=== PATIENT | female | born 1975 | race Native Hawaiian/Other Pacific Islander ===

== ENCOUNTER 2017-04-30 13:42 | Outpatient (CLI) | payer MEDICAID ==
--- NOTE | 2017-04-30 15:17 | Ultrasound Report ---
PELVIC ULTRASOUND: 04/30/2017 CLINICAL INDICATION: Oligomenorrhea. TECHNIQUE: Transabdominal pelvic ultrasound performed for global evaluation. Transvaginal pelvic ultrasound performed for detailed evaluation. Real-time scanning performed and static images obtained. FINDINGS: The uterus is anteverted, measuring 10.8 x 5.4 x 4.4 cm. The endometrial echo complex measures 4 mm. No focal myometrial lesion is present. The ovaries are normal, with the right measuring 1.7 x 1.5 x 1.3 cm and the left measuring 2.2 x 2.1 x 1.4 cm. No free fluid is present. IMPRESSION: NORMAL PELVIC ULTRASOUND. :9 JOB #: [id number] EXT JOB #: [id number] [facility]
== END 2017-04-30 13:43 | disposition home or self-care (01) ==
LOC: DI 13:42
PROVIDERS: ATTEND Registered Nurse
DX: N91.4 Secondary oligomenorrhea (principal)
CPT/HCPCS: 76830; 76856

== ENCOUNTER 2017-04-30 13:44 | Outpatient (CLI) | payer MEDICAID ==
--- NOTE | 2017-05-02 11:19 | Mammography Report ---
DIGITAL SCREENING MAMMOGRAM: 04/30/2017 CLINICAL INDICATION: A 41-year-old, for baseline. TECHNIQUE: Routine CC and MLO projections were obtained of the breasts. FINDINGS: The breasts demonstrate scattered fibroglandular densities bilaterally. Punctate, typicall y benign calcifications are present. No suspicious masses, clustered microcalcifications, or regions of architectural distortion are identified. IMPRESSION: BENIGN FINDINGS. RECOMMENDATION: ROUTINE ANNUAL SCREENING UNLESS OTHERWISE CLINICALLY INDICATED. BIRADS CATEGORY 2-BENIGN FINDINGS. STANDARD QUALIFYING STATEMENTS 1. This examination was reviewed with the aid of Computer-Aided Detection (CAD). 2. A negative or benign imaging report should not delay biopsy if clinically suspicious findings are present. Consider surgical consultation if warranted. More than 5% of cancers are not identified by i maging. 3. Dense breasts may obscure an underlying neoplasm. JOB #: [id number] EXT JOB #:[id number]
== END 2017-04-30 13:45 | disposition home or self-care (01) ==
LOC: DI 13:44
PROVIDERS: ATTEND Registered Nurse
DX: Z12.31 Encounter for screening mammogram for malignant neoplasm of breast (principal)
CPT/HCPCS: 77067

== ENCOUNTER 2017-05-27 10:46 | Outpatient (CLI) | payer MEDICAID | END 2017-05-27 10:47 | disposition home or self-care (01) | LOC: SC 10:46 | PROVIDERS: ATTEND Nurse Practitioner Family | DX: G47.33 Obstructive sleep apnea (adult) (pediatric) (principal); G47.00 Insomnia, unspecified | CPT/HCPCS: 99212; 99214 ==

== ENCOUNTER 2017-08-29 08:00 | Outpatient (CLI) | payer MEDICAID ==
[2017-08-29 12:45] LABS: BASOPHILS # (AUTO) 0.1 10^3/uL (0.0-0.1); BASOPHILS % (AUTO) 0.7 %; EOSINOPHILS # (AUTO) 0.5 10^3/uL (0.0-0.7); EOSINOPHILS % (AUTO) 4.9 %; HGB - HEMOGLOBIN 13.5 g/dL (12.0-16.0); LYMPHOCYTES # (AUTO) 2.5 10^3/uL (1.5-3.5); LYMPHOCYTES % (AUTO) 25.9 %; MEAN CORPUSCULAR HEMOGLOBIN 30.9 pg (27.0-31.0); MEAN CORPUSCULAR HGB CONC 34.2 g/dL (32.0-36.0); MEAN CORPUSCULAR VOLUME 90.4 fL (81.0-99.0); MEAN PLATELET VOLUME 8.2 fL (7.9-10.8); MONOCYTES # (AUTO) 0.4 10^3/uL (0.0-1.0); NEUTROPHILS # (AUTO) 6.1 10^3/uL (1.5-6.6); NEUTROPHILS % (AUTO) 64.5 %; PLT - PLATELET COUNT 306 10^3/uL (130-450); RED BLOOD COUNT 4.37 10^6/uL (4.20-5.40); RED CELL DISTRIBUTION WIDTH 13.9 % (12.0-15.0); WHITE BLOOD COUNT 9.5 x10^3/uL (4.8-10.8)
[2017-08-29 13:29] LABS: ALBUMIN 4.3 g/dL (3.2-5.5); ALBUMIN/GLOBULIN RATIO 1.1 (1.0-2.2); ALKALINE PHOSPHATASE 75 IU/L (42-121); ALT ALANINE AMINOTRANSFERASE 21 IU/L (10-60); AST ASPARTATE AMINOTRANSFERASE 23 IU/L (10-42); BILIRUBIN,TOTAL 0.3 mg/dL (0.2-1.0); BUN - BLOOD UREA NITROGEN 11 mg/dL (6-20); CALCIUM 8.9 mg/dL (8.5-10.3); CARBON DIOXIDE - CO2 23 mmol/L (21-32); CHLORIDE 102 mmol/L (101-111); CHOL/HDL RATIO 4.8 (<4.4); CHOLESTEROL 130 mg/dL; CREATININE 0.8 mg/dL (0.4-1.0); GFR - MDRD 79 (>89); GLUCOSE 100 mg/dL (70-100); HDL CHOLESTEROL 27 mg/dL; LDL CHOLESTEROL,CALCULATED 76 mg/dL; LDL/HDL RATIO 2.8 (<4.4); SODIUM 134 mmol/L (135-145); TOTAL PROTEIN 8.3 g/dL (6.7-8.2); VLDL CHOLESTEROL 27 mg/dL
== END 2017-08-29 08:01 | disposition home or self-care (01) ==
LOC: LAB.N 08:00
PROVIDERS: ATTEND Family Medicine
DX: I10 Essential (primary) hypertension (principal); E66.9 Obesity, unspecified; Z51.81 Encounter for therapeutic drug level monitoring; Z79.899 Other long term (current) drug therapy
CPT/HCPCS: 36415; 80053; 80061; 83721; 84443; 85025

== ENCOUNTER 2017-12-24 17:23 | Emergency (ER) | payer MEDICAID ==
--- NOTE | 2017-12-24 19:09 | ED Physician Documentation ---
History of Present Illness - Stated complaint Stated Complaint: LT THUMB LAC - Chief complaint Chief Complaint: Laceration - History obtained from History obtained from: Patient - Additonal information Additional information: 42-year-old female presents the emergency department for evaluation of in injury to her left thumb which occurred just prior to arrival. The patient was peeling potatoes and shaved off a portion of her left thumb tip and nail. The patient denies loss of function. No other area of injury. The patient's tetanus is not up-to-date. Symptoms are described as moderate. 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 - Present Medications Home Medications: Ambulatory Orders Medication Instructions Recorded Confirmed Metoprolol Succinate 12/24/17 Prazosin [Minipress] 12/24/17 12/24/17 buPROPion [Wellbutrin Sr] 12/24/17 - Allergies Allergies/Adverse Reactions: Allergies Allergy/AdvReac Type Severity Reaction Status Date / Time codeine Allergy Rash Verified 12/24/17 17:30 - Social History Does the pt smoke?: Yes Smoking Status: Current every day smoker Does the pt drink ETOH?: No Does the pt have substance abuse?: No - Immunizations Immunizations are current?: Yes - POLST Patient has POLST: No PD ED PE NORMAL - General General: Alert and oriented X 3, No acute distress - HEENT HEENT: Atraumatic, PERRL, EOMI, Ears normal - Derm Derm: Other (The patient avulsed a small portion of her left thumb tip and small portion of her nail. There is mild venous bleeding. The patient has full active range of motion. There is no evidence of ligamentous or tendon injury. Sensation light touch is intact) - Extremities Extremities: Normal ROM s pain - Neuro Neuro: Alert and oriented X 3, No motor deficit - Psych Psych: Normal mood Results - Vitals Vitals: Vital Signs - 24 hr 12/24/17 12/24/17 17:28 19:10 Temperature 36.1 C L Heart Rate 71 72 Respiratory 18 16 Rate Blood Pressure 147/93 H 138/86 H O2 Saturation 97 100 Oxygen O2 Source Room air Procedures - Laceration (location) Finger left Wound type: Clean Skin layer closure: Other (The patient's wound is an avulsion, there is no area that would require laceration repair. The patient's wound was dressed with Surgicel and a pressure dressing was applied.) Other: Tetanus UTD Complexity: Simple PD MEDICAL DECISION MAKING - ED course ED course: The patient's wound was treated with Surgicel and a pressure dressing. The patient will follow up with primary care. I discussed warning signs and recommended returning to the emergency department for worsening or any concerns - Sepsis Event Vital Signs: Vital Signs - 24 hr 12/24/17 12/24/17 17:28 19:10 Temperature 36.1 C L Heart Rate 71 72 Respiratory 18 16 Rate Blood Pressure 147/93 H 138/86 H O2 Saturation 97 100 Oxygen O2 Source Room air Departure - Departure Disposition: 01 Home, Self Care Clinical Impression: Avulsion of finger tip Qualifiers: Encounter type: initial encounter Qualified Code(s): S61.209A - Unspecified open wound of unspecified finger without damage to nail, initial encounter Instructions: ED Laceration All Follow-Up: Tony Rader MD [Primary Care Provider] - Within 1 week Comments: Please return to the emergency department immediately for worsening symptoms or any concerns Discharge Date/Time: 12/24/17 19:10
[2017-12-24 19:16] VITALS: BP 138/86
== END 2017-12-24 19:10 | disposition home or self-care (01) ==
LOC: ED 17:23
DX: S61.112A Laceration without foreign body of left thumb with damage to nail, initial encounter (principal); I10 Essential (primary) hypertension; F17.200 Nicotine dependence, unspecified, uncomplicated; W27.4XXA Contact with kitchen utensil, initial encounter; Y93.89 Activity, other specified
CPT/HCPCS: 99283

== ENCOUNTER 2018-09-01 09:08 | Outpatient (CLI) | payer MEDICAID | END 2018-09-01 09:09 | disposition home or self-care (01) | LOC: SC 09:08 | PROVIDERS: ATTEND Nurse Practitioner Family | DX: G47.33 Obstructive sleep apnea (adult) (pediatric) (principal) | CPT/HCPCS: 99212; 99214 ==

== ENCOUNTER 2019-08-31 11:49 | Outpatient (CLI) | payer MEDICAID ==
[2019-08-31 18:19] LABS: BASOPHILS % (AUTO) 0.3 %; EOSINOPHILS # (AUTO) 0.4 10^3/uL (0.0-0.7); EOSINOPHILS % (AUTO) 3.9 %; HGB - HEMOGLOBIN 14.2 g/dL (12.0-16.0); LYMPHOCYTES # (AUTO) 2.3 10^3/uL (1.5-3.5); LYMPHOCYTES % (AUTO) 24.2 %; MEAN CORPUSCULAR HEMOGLOBIN 29.5 pg (27.0-31.0); MEAN CORPUSCULAR HGB CONC 33.2 g/dL (32.0-36.0); MEAN CORPUSCULAR VOLUME 88.8 fL (81.0-99.0); MEAN PLATELET VOLUME 10.3 fL (7.9-10.8); MONOCYTES # (AUTO) 0.3 10^3/uL (0.0-1.0); MONOCYTES % (AUTO) 3.1 %; NEUTROPHILS # (AUTO) 6.6 10^3/uL (1.5-6.6); NEUTROPHILS % (AUTO) 68.1 %; PLT - PLATELET COUNT 307 10^3/uL (130-450); RED BLOOD COUNT 4.82 10^6/uL (4.20-5.40); WHITE BLOOD COUNT 9.7 x10^3/uL (4.8-10.8)
[2019-08-31 18:36] LABS: CALCIUM 9.1 mg/dL (8.5-10.3); CREATININE 0.7 mg/dL (0.4-1.0)
== END 2019-08-31 11:50 | disposition home or self-care (01) ==
LOC: LAB.N 11:49
PROVIDERS: ATTEND Physician Assistant Medical
DX: I10 Essential (primary) hypertension (principal)
CPT/HCPCS: 36415; 80048; 84443; 85025

== ENCOUNTER 2019-09-02 12:03 | Outpatient (CLI) | payer MEDICAID ==
[2019-09-02 17:24] LABS: HB2 TOTAL 14.8 g/dL; HEMOGLOBIN A1C 0.98 g/dL; HEMOGLOBIN A1C % 8.2 % (4.6-6.2)
== END 2019-09-02 23:59 | disposition home or self-care (01) ==
LOC: LAB.N 12:03
PROVIDERS: ATTEND Physician Assistant Medical
DX: R73.9 Hyperglycemia, unspecified (principal)
CPT/HCPCS: 36415; 83036

== ENCOUNTER 2019-11-03 15:40 | Outpatient (CLI) | payer MEDICAID ==
--- NOTE | 2019-11-03 15:32 | SLEEP CARE CONSULTATION ---
Information from patient questionnaire entered by Keira Camargo. I have reviewed and concur with the information entered by Keira Camargo. This document represents the service I personally performed and the decisions made by me, Edel Garcia, RN, MSN, CONTINUITY EDITOR. History of Present Illness Service Date and Time: 11/03/2019 1540 Previous diagnosis: Severe, Obstructive Sleep Apnea-Hypopnea Syndrome AHI: 46.3 (in 2014) Reason for follow up: annual (last seen 2018) Equipment type: CPAP Equipment obtained from: [facility] (getting supplies as needed) Mask style: Nasal Mask brand: Respironics Backup mask available: Yes (old mask ) Last cushion change: a couple of months Prior sleep studies: Yes Year and Where: 2014 - [facility] Type of Sleep Study: Polysomnography CPAP Compliance Data - Data Reviewed with Patient Average duration of nightly device use: 5.75 Compliance rate %: 82.2 (180 days) Current pressure setting (cmH2O): 14 Humidity settin Heated hose settin Average residual AHI: 2.7 Average large leak: 6 min 55 sec Subjective Patient concerns: reports: dry mouth, nose, throat (dry nose ). denies: aerophagia, mask discomfort, air blowing in eyes, mask leak noise, condensation in mask/hose, nasal congestion, epistaxis Observed to snore while using device: No Current pressure setting perceived as: too low (waking to feeling of not enough air / claustrophobia) On therapy, patient: reports: sleeping better, awakening more refreshed, being more awake and alert during the day, more rested overall. denies: drowsiness while driving Initial [place] Sleepiness Scale score: 14 (in 2015) Allergies and Home Medications Home medication list reviewed: No (started lisinopril and metformin ) Review of Systems Review of systems same as previous: No (new diabetes diagnosis) Physical Exam Height: 5 ft 2 in Weight: 263 lb Weight change since last visit: lost 12 pounds Body Mass Index: 48.1 BMI Classification: Morbidly Obese Impression and Plan 1. Obstructive Sleep Apnea-Hypopnea Syndrome, severe, with good treatment compliance and good apnea control. On CPAP therapy, the patient has better sleep quality and is more rested overall. However, she is waking to air hunger even with recent weight loss. Thus I will increase her CPAP pressure to [id number]. Patient advised to contact me if the air hunger is not resolved or if the pressure is uncomfortable. I also discussed how significant weight loss can reduce her apnea risk and CPAP pressure requirements. She was informed of symptoms to report for further PAP pressure adjustment. Nasal dryness can be reduced with increasing the CPAP humidity and the heated hose can be increased if condensation. Verbal instructions given. These can also be found in the manual. She can also contact [facility] for instructions and I will add this to the prescription for pressure change. With her new diagnosis of diabetes, I informed her of the diabetic classes available through the hospital and benefit stated by my other patients. But it requires a referral from her PCP. She is advised to discuss this with her PCP and agreed with plan. Patient's apnea severity and rationale for treatment to reduce apnea, improve sleep quality and reduce cardiovascular and cerebrovascular events was reviewed. I also reviewed the benefit of consistent device use of CPAP for hypertension. * * Change autoCPAP pressure to 15 cmH2O * Adjust humidity * Notify me if snoring with mask or feeling that the pressure is too much or too little * Continue to lose weight * Discuss diabetic classes with PCP * Use CPAP with all sleep * Call this office if any problems using CPAP * Return for follow up in 1 year , or sooner if concerns arise Visit Type: Telehealth Phone (to reduce risk of Covid 19 exposure) Patient Location: Home Location of Provider: Home Patient agrees and consents to this telehealth visit type: Yes Patient agrees to have their insurance billed: Yes Time Spent with Patient (minutes): 20 Provider Statement: I spent 100% of the Telehealth Phone Call with the patient with greater than 50% spent counseling the patient and coordination of care.
== END 2019-11-03 15:41 | disposition home or self-care (01) ==
LOC: SC 15:40
PROVIDERS: ATTEND Nurse Practitioner Family
DX: G47.33 Obstructive sleep apnea (adult) (pediatric) (principal); E66.01 Morbid (severe) obesity due to excess calories; Z68.42 Body mass index [BMI] 45.0-49.9, adult

== ENCOUNTER 2020-02-04 10:57 | Outpatient (CLI) | payer MEDICAID ==
[2020-02-04 18:32] LABS: ALBUMIN 4.6 g/dL (3.2-5.5); ALBUMIN/GLOBULIN RATIO 1.1 (1.0-2.2); ALKALINE PHOSPHATASE 75 IU/L (42-121); ALT ALANINE AMINOTRANSFERASE 16 IU/L (10-60); AST ASPARTATE AMINOTRANSFERASE 18 IU/L (10-42); BILIRUBIN,TOTAL 0.3 mg/dL (0.2-1.0); BUN - BLOOD UREA NITROGEN 16 mg/dL (6-20); CALCIUM 9.6 mg/dL (8.5-10.3); CARBON DIOXIDE - CO2 25 mmol/L (21-32); CHLORIDE 104 mmol/L (101-111); CHOL/HDL RATIO 3.7 (<4.4); CHOLESTEROL 122 mg/dL; GLUCOSE 98 mg/dL (70-100); HDL CHOLESTEROL 33 mg/dL; LDL CHOLESTEROL,CALCULATED 54 mg/dL; LDL/HDL RATIO 1.6 (<4.4); SODIUM 137 mmol/L (135-145); TOTAL PROTEIN 8.8 g/dL (6.7-8.2); VLDL CHOLESTEROL 35 mg/dL
[2020-02-04 18:56] LABS: CREATININE,URINE 496.8 mg/dL; MICROALBUM/CREATININE RATIO,UR 7.6 ug/mg (<30.0); MICROALBUMIN,URINE 3.8 mg/dL (0-300.0)
[2020-02-04 19:17] LABS: HEMOGLOBIN A1c% 5.7 % (4.27-6.07)
== END 2020-02-04 23:59 | disposition home or self-care (01) ==
LOC: LAB.WCP 10:57
PROVIDERS: ATTEND Physician Assistant
DX: E11.9 Type 2 diabetes mellitus without complications (principal)
CPT/HCPCS: 36415; 80053; 80061; 82043; 82570; 83036; 83721; 84443

== ENCOUNTER 2020-09-18 11:09 | Outpatient (CLI) | payer MEDICAID ==
[2020-09-18 18:21] LABS: BASOPHILS % (AUTO) 0.5 %; EOSINOPHILS # (AUTO) 0.6 10^3/uL (0.0-0.7); EOSINOPHILS % (AUTO) 6.9 %; HCT - HEMATOCRIT 41.1 % (37.0-47.0); HGB - HEMOGLOBIN 13.1 g/dL (12.0-16.0); LYMPHOCYTES # (AUTO) 2.4 10^3/uL (1.5-3.5); LYMPHOCYTES % (AUTO) 27.5 %; MEAN CORPUSCULAR HEMOGLOBIN 29.4 pg (27.0-31.0); MEAN CORPUSCULAR HGB CONC 31.9 g/dL (32.0-36.0); MEAN CORPUSCULAR VOLUME 92.4 fL (81.0-99.0); MEAN PLATELET VOLUME 10.1 fL (7.9-10.8); MONOCYTES # (AUTO) 0.4 10^3/uL (0.0-1.0); MONOCYTES % (AUTO) 4.7 %; NEUTROPHILS # (AUTO) 5.2 10^3/uL (1.5-6.6); NEUTROPHILS % (AUTO) 60.2 %; PLT - PLATELET COUNT 373 10^3/uL (130-450); RED BLOOD COUNT 4.45 10^6/uL (4.20-5.40); RED CELL DISTRIBUTION WIDTH 14.7 % (12.0-15.0); WHITE BLOOD COUNT 8.6 x10^3/uL (4.8-10.8)
[2020-09-18 18:48] LABS: ALBUMIN 4.6 g/dL (3.2-5.5); ALBUMIN/GLOBULIN RATIO 1.2 (1.0-2.2); ALKALINE PHOSPHATASE 61 IU/L (42-121); ALT ALANINE AMINOTRANSFERASE 15 IU/L (10-60); AST ASPARTATE AMINOTRANSFERASE 17 IU/L (10-42); BILIRUBIN,TOTAL 0.8 mg/dL (0.2-1.0); BUN - BLOOD UREA NITROGEN 17 mg/dL (6-20); CALCIUM 9.1 mg/dL (8.5-10.3); CARBON DIOXIDE - CO2 25 mmol/L (21-32); CHLORIDE 102 mmol/L (101-111); CHOL/HDL RATIO 4.4 (<4.4); CHOLESTEROL 151 mg/dL; CREATININE 1.1 mg/dL (0.4-1.0); GFR - MDRD 54 (>89); GLUCOSE 90 mg/dL (70-100); HDL CHOLESTEROL 34 mg/dL; LDL CHOLESTEROL,CALCULATED 83 mg/dL; LDL/HDL RATIO 2.4 (<4.4); POTASSIUM 4.5 mmol/L (3.5-5.0); SODIUM 136 mmol/L (135-145); TOTAL PROTEIN 8.5 g/dL (6.7-8.2); TRIGLYCERIDES 172 mg/dL; VLDL CHOLESTEROL 34 mg/dL
[2020-09-18 18:51] LABS: CREATININE,URINE 249.6 mg/dL; MICROALBUM/CREATININE RATIO,UR 18.4 ug/mg (<30.0); MICROALBUMIN,URINE 4.6 mg/dL (0-300.0); THYROID STIMULATING HORMONE 2.32 uIU/mL (0.34-5.60)
[2020-09-18 20:27] LABS: ESTIMATED AVERAGE GLUCOSE 105 mg/dL (70-100); HEMOGLOBIN A1c% 5.3 % (4.27-6.07)
== END 2020-09-18 23:59 | disposition home or self-care (01) ==
LOC: LAB.WCP 11:09
PROVIDERS: ATTEND Family Medicine
DX: Z00.00 Encounter for general adult medical examination without abnormal findings (principal); I10 Essential (primary) hypertension; E11.9 Type 2 diabetes mellitus without complications
CPT/HCPCS: 36415; 80053; 80061; 82043; 82570; 83036; 83721; 84443; 85025

== ENCOUNTER 2020-10-30 11:27 | Outpatient (CLI) | payer MEDICAID ==
--- NOTE | 2020-10-30 12:24 | SLEEP CARE CONSULTATION ---
Information from patient questionnaire entered by Keira Camargo. I have reviewed and concur with the information entered by Keira Camargo. This document represents the service I personally performed and the decisions made by me, Celine Brice MD, [facility]. History of Present Illness Service Date and Time: 10/30/2020 1127 Previous diagnosis: Severe, Obstructive Sleep Apnea-Hypopnea Syndrome AHI: 46.3 (in 2014) Reason for follow up: annual (last seen 10/2019) Equipment type: CPAP Equipment obtained from: [facility] Mask style: Nasal Mask brand: Respironics (Wisp) Prior sleep studies: Yes Year and Where: 2014 - [facility] Type of Sleep Study: Polysomnography HPI additional information: HPI: Ms. Lofton was called today to annual follow up on the nasal CPAP therapy. She was diagnosed to have severe obstructive sleep apnea-hypopnea syndrome. The patient wears a Respironics Wisp nasal mask. She reports using the device nightly and all through the night. The compliance report shows usage in 167 nights out of the past 180 nights, averaging 5.5 hours a night. The > 4 hour compliance rate for the past 180 days is 73.3%. She complained of no particular problem with the device such as soreness on the face, dry nose, epistaxis, nasal congestion or headache. She thinks that the pressure 14 cmH2O is comfortable. On the CPAP therapy she notices improvement in her sleep quality, and that she wakes up feeling fresher in the morning and more awake/alert during the day. The average residual AHI is 1.5; and average time in large leak per day is 55 seconds. CPAP Compliance Data - Data Reviewed with Patient Average duration of nightly device use: 5 hr 27 min Compliance rate %: 73.3 (180 days) Current pressure setting (cmH2O): 14 Humidity settin Average residual AHI: 1.5 Average large leak: 56 sec Subjective Missed days of use due to: reports: other (Too tired, fell asleep) Patient concerns: reports: mask leak noise Initial [place] Sleepiness Scale score: 14 (in 2014) Current [place] Sleepiness Scale score: 9 Allergies and Home Medications Drug allergies reviewed: Yes Home medication list reviewed: Yes Review of Systems Review of systems same as previous: Yes Physical Exam Height: 5 ft 2 in Weight: 239 lb Weight change since last visit: -31 Body Mass Index: 43.7 BMI Classification: Morbidly Obese Impression and Plan IMPRESSION: 1. Obstructive Sleep Apnea-Hypopnea Syndrome, severe (AHI was 46.3), with the patient doing well on nasal CPAP therapy. She has excellent compliance and significant clinical improvement. The current pressure appears effective and comfortable. Her Wisp mask fits well. Overall, she is very satisfied with treatment and plans to continue with it long-term. Because the patients CPAP is now older than the useful life of 5 years, I will order her a new autoCPAP and set it between 8 - 14 cmH2O. The decrease in pressure requirement is most likely from the 30-lb weight loss. PLAN: 1. Prescription made for an autoCPAP with heated humidifier and other supplies. 2. Try to lose more weight 3. Return for a follow up after one month of using the device for compliance check. Follow up recommended for: Weight management Visit Type: In Office Time Spent with Patient (minutes): 15 Provider Statement: I spent 100% of the Face to Face Visit with the patient with greater than 50% spent counseling the patient and coordination of care.
== END 2020-10-30 11:28 | disposition home or self-care (01) ==
LOC: SC 11:27
PROVIDERS: ATTEND Internal Medicine Pulmonary Disease
DX: G47.33 Obstructive sleep apnea (adult) (pediatric) (principal); E66.01 Morbid (severe) obesity due to excess calories; Z68.41 Body mass index [BMI] 40.0-44.9, adult
CPT/HCPCS: 99212

== ENCOUNTER 2020-11-14 08:39 | Day surgery (SDC) | payer MEDICAID ==
[2020-11-14] MEDS ORDERED: LACTATED RINGERS 1,000 ML IV ONE ×2 (08:44→10:06)
[2020-11-14] MEDS ORDERED: MIDAZOLAM 2 MG/2 ML VIAL ONE ×3 (09:33→09:51)
[2020-11-14] MEDS ORDERED: fentaNYL 250 MCG/5 ML VIAL ONE (09:34)
[2020-11-14 10:33] VITALS: BP 108/83
== END 2020-11-14 08:40 | disposition home or self-care (01) ==
LOC: SDS 08:39
PROVIDERS: ATTEND Surgery
DX: Z12.11 Encounter for screening for malignant neoplasm of colon (principal); K57.30 Diverticulosis of large intestine without perforation or abscess without bleeding; K64.8 Other hemorrhoids; Z80.0 Family history of malignant neoplasm of digestive organs; G47.33 Obstructive sleep apnea (adult) (pediatric); F17.290 Nicotine dependence, other tobacco product, uncomplicated
CPT/HCPCS: 45378; J3010; J7120

== ENCOUNTER 2021-01-15 04:43 | Emergency (ER) | payer MEDICAID ==
--- NOTE | 2021-01-15 05:05 | ED Physician Documentation ---
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 No: Headache, Nausea / vomiting Contributing factors: Just stood up Injury occurred: Fell Similar symptoms before: Has not had sx before - Additional information Additional information: shortly WAYBILL CLERK, patient got out of bed (wasnt asleep; was watching a video on her tablet) she got up to use the bathroom, experienced ear fullness with decreased/muffled hearing bilaterally, dimmed peripheral vision, and generalized weakness. she felt like she might pass out although does not recall passing out. She woke up on floor and approximately 20 minutes of time unaccounted for. She presents feeling normal, at baseline. no witnessed seizure activity, no tongue bite Review of Systems Constitutional: reports: Reviewed and negative Eyes: reports: Reviewed and negative Ears: reports: Reviewed and negative Nose: reports: Reviewed and negative Throat: reports: Reviewed and negative Cardiac: reports: Reviewed and negative, Other Respiratory: reports: Reviewed and negative GI: reports: Reviewed and negative : denies: Dysuria, Frequency, Now EGA PD PAST MEDICAL HISTORY - Past Medical History Cardiovascular: Hypertension Psych: Depression, Anxiety, Other - Past Surgical History Past Surgical History: Yes General: Cholecystectomy, 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 - Present Medications Home Medications: Ambulatory Orders Medication Instructions Recorded Confirmed Metoprolol Succinate 25 mg PO DAILY 12/24/17 01/15/21 Prazosin [Minipress] 5 mg PO DAILY 12/24/17 01/15/21 LORazepam [Ativan] 1 mg PO DAILY 11/14/20 01/15/21 Metformin HCl [Fortamet] 1,000 mg PO BID 11/14/20 01/15/21 lamoTRIgine [Lamictal Xr] 300 mg PO DAILY 11/14/20 01/15/21 - Allergies Allergies/Adverse Reactions: Allergies Allergy/AdvReac Type Severity Reaction Status Date / Time codeine Allergy Intermediate Rash Verified 01/15/21 04:55 - Social History Does the pt smoke?: Yes Smoking Status: Current every day smoker Does the pt drink ETOH?: No Does the pt have substance abuse?: No - Immunizations Immunizations are current?: Yes - POLST Patient has POLST: No PD ED PE NORMAL - Vitals Vital signs reviewed: Yes - General General: Alert and oriented X 3, No acute distress, Well developed/nourished - HEENT HEENT: Atraumatic, PERRL, EOMI, Moist mucous membranes - Neck Neck: Supple, no meningeal sign - Cardiac Cardiac: RRR, No rub - Respiratory Respiratory: No respiratory distress, Clear bilaterally - Abdomen Abdomen: Normal bowel sounds, Soft, Non tender, Non distended - Derm Derm: Normal color, No rash - Neuro Neuro: Alert and oriented X 3 Results - Vitals Vitals: Oxygen O2 Source Room air - EKG (time done) No standard instances Rate: Rate (enter#) (57) Rhythm: NSR Intervals: Normal NH, 2nd degree AVB type 1 Ischemia: Normal ST segments - Labs Labs: Laboratory Tests 01/15/21 01/15/21 01/15/21 05:05 05:05 05:05 WBC 10.9 H RBC 4.51 Hgb 13.7 Hct 41.5 MCV 92.0 MCH 30.4 MCHC 33.0 RDW 13.5 Plt Count 334 MPV 9.3 Neut # (Auto) 6.8 H Lymph # (Auto) 3.2 [place]ays # (Auto) 0.4 Eos # (Auto) 0.5 Baso # (Auto) 0.0 Absolute Nucleated RBC 0.00 Nucleated RBC % 0.0 Sodium 136 Potassium 3.8 Chloride 99 L Carbon Dioxide 24 Anion Gap 13.0 BUN 20 Creatinine 1.5 H Estimated GFR (MDRD) 38 L Glucose 129 H Calcium 9.5 Total Bilirubin 0.5 AST 18 ALT 13 Alkaline Phosphatase 61 Troponin I High Sens Total Protein 8.7 H Albumin 4.7 Globulin 4.0 Albumin/Globulin Ratio 1.2 Lipase 31 TSH 5.85 H 01/15/21 05:05 WBC RBC Hgb Hct MCV MCH MCHC RDW Plt Count MPV Neut # (Auto) Lymph # (Auto) [place] # (Auto) Eos # (Auto) Baso # (Auto) Absolute Nucleated RBC Nucleated RBC % Sodium Potassium Chloride Carbon Dioxide Anion Gap BUN Creatinine Estimated GFR (MDRD) Glucose Calcium Total Bilirubin AST ALT Alkaline Phosphatase Troponin I High Sens 2.4 Total Protein Albumin Globulin Albumin/Globulin Ratio Lipase TSH - Rads (name of study) chest xray Radiology: Prelim report reviewed, See rad report PD MEDICAL DECISION MAKING - ED course Complexity details: reviewed results, re-evaluated patient, considered differential, d/w patient ED course: reassuring blood tests (incidental note of mildly elevated creatinine with normal BUN). vital stable during ED stay although her SBP was low/normal (90s- 100s). after 2 liters NS, orthostatics undertaken and she had no significant change in her vital signs nor any symptoms and is thus discharged home. Departure - Departure Disposition: 01 Home, Self Care Clinical Impression: Syncope Qualifiers: Syncope type: unspecified Qualified Code(s): R55 - Syncope and collapse Condition: Good Instructions: ED Fainting Unkn Cause Comments: As we discussed, there is a mild abnormality in one of your kidney function tests today. This is likely a coincident finding (unrelated to your symptoms). You should follow up with your primary care provider for reevaluation of this abnormality. Discharge Date/Time: 01/15/21 08:12
[2021-01-15] MEDS: SODIUM CHLORIDE 0.9% 1,000 ML IV STA ×2 (05:09→06:47)
[2021-01-15 05:15] LABS: BASOPHILS % (AUTO) 0.2 %; EOSINOPHILS # (AUTO) 0.5 10^3/uL (0.0-0.7); EOSINOPHILS % (AUTO) 4.1 %; HCT - HEMATOCRIT 41.5 % (37.0-47.0); HGB - HEMOGLOBIN 13.7 g/dL (12.0-16.0); LYMPHOCYTES # (AUTO) 3.2 10^3/uL (1.5-3.5); LYMPHOCYTES % (AUTO) 29.6 %; MEAN CORPUSCULAR HEMOGLOBIN 30.4 pg (27.0-31.0); MEAN PLATELET VOLUME 9.3 fL (7.9-10.8); MONOCYTES # (AUTO) 0.4 10^3/uL (0.0-1.0); MONOCYTES % (AUTO) 3.9 %; NEUTROPHILS # (AUTO) 6.8 10^3/uL (1.5-6.6); PLT - PLATELET COUNT 334 10^3/uL (130-450); RED BLOOD COUNT 4.51 10^6/uL (4.20-5.40); RED CELL DISTRIBUTION WIDTH 13.5 % (12.0-15.0); WHITE BLOOD COUNT 10.9 x10^3/uL (4.8-10.8)
[2021-01-15 05:30] LABS: ALBUMIN 4.7 g/dL (3.2-5.5); ALBUMIN/GLOBULIN RATIO 1.2 (1.0-2.2); BILIRUBIN,TOTAL 0.5 mg/dL (0.2-1.0); CALCIUM 9.5 mg/dL (8.5-10.3); CREATININE 1.5 mg/dL (0.4-1.0); POTASSIUM 3.8 mmol/L (3.5-5.0); TOTAL PROTEIN 8.7 g/dL (6.7-8.2)
[2021-01-15 07:59] VITALS: BP 105/69
--- NOTE | 2021-01-15 08:09 | XRAY Report ---
PROCEDURE: Chest 2 View X-Ray INDICATIONS: syncope TECHNIQUE: 2 view(s) of the chest. COMPARISON: None. FINDINGS: Surgical changes and devices: None. Lungs and pleura: No pleural effusions or pneumothorax. Lungs are clear. Mediastinum: Mediastinal contours are normal. Heart size is normal. Bones and chest wall: No suspicious bony abnormalities. Soft tissues appear unremarkable. IMPRESSION: No acute cardiopulmonary abnormality Reviewed by: Andrew Cooney on 01/15/2021 8:07 AM PDT Approved by: Andrew Cooney on 01/15/2021 8:07 AM PDT Station ID: [id number]
== END 2021-01-15 08:12 | disposition home or self-care (01) ==
LOC: ED 04:43
DX: R55 Syncope and collapse (principal); I10 Essential (primary) hypertension; F17.200 Nicotine dependence, unspecified, uncomplicated
CPT/HCPCS: 36415; 80053; 83690; 84443; 84484; 85025; 93005; 99284

== ENCOUNTER 2021-03-06 10:24 | Outpatient (CLI) | payer MEDICAID ==
--- NOTE | 2021-03-06 11:02 | SLEEP CARE CONSULTATION ---
Information from patient questionnaire entered by Sarah Zuleta. I have reviewed and concur with the information entered by Sarah Zuleta. This document represents the service I personally performed and the decisions made by , Yashira Moya ARNP. History of Present Illness Service Date and Time: 03/06/2021 1024 Previous diagnosis: Severe, Obstructive Sleep Apnea-Hypopnea Syndrome AHI: 46.3 (in 2014) Reason for follow up: first compliance, first compliance after device update Equipment type: CPAP Equipment obtained from: Other ([facility]; getting supplies as needed) Mask style: Nasal Backup mask available: Yes (old mask) Last cushion change: 2 months Prior sleep studies: Yes Year and Where: 2014 - [facility] Type of Sleep Study: Polysomnography HPI additional information: HERNANDEZ JULIEN was diagnosed to have severe, AHI 46.3, obstructive sleep apnea- hypopnea syndrome and returned today with partner for CPAP therapy first compliance after device update follow-up. Sleep Study - Results Type of Sleep Study: Polysomnography Prior sleep studies: Yes Year and Where: 2014 - [facility] CPAP Compliance Data - Data Reviewed with Patient Average duration of nightly device use: 5 hours 18 minutes Compliance rate %: 53 Current pressure setting (cmH2O): 8-14 Average residual AHI: 1.9 Central apnea: 0.4 Obstructive apnea: 1.1 Hypopnea: 0.2 Subjective Missed days of use due to: reports: other (Fell asleep) Patient concerns: reports: mask discomfort, dry mouth, nose, throat (because of needing more air). denies: aerophagia, air blowing in eyes, mask leak noise, condensation in mask/hose, nasal congestion, epistaxis, other Observed to snore while using device: No Current pressure setting perceived as: too low On therapy, patient: reports: sleeping better, awakening more refreshed, being more awake and alert during the day, more rested overall. denies: drowsiness while driving Initial [place] Sleepiness Scale score: 14 (in 2014) Current [place] Sleepiness Scale score: 8 Allergies and Home Medications Home medication list reviewed: Yes (no changes) Review of Systems Review of systems same as previous: Yes (no changes) Physical Exam Heart Rate: 73 O2 Saturation: 97 Height: 5 ft 2 in Weight: 223 lb Body Mass Index: 40.8 BMI Classification: Morbidly Obese Impression and Plan 1. Obstructive Sleep Apnea-Hypopnea Syndrome, severe, with poor treatment compliance and good apnea control. On CPAP therapy, the patient has better sleep quality and is more rested overall. Patient has had difficulties at home due to family member dying from complications of Covid. She states she has a hard time shutting her mind off to able to go to sleep. Encouraged to try something like melatonin to help her go to sleep and also to write down her thoughts when she is ruminating to help her to relax and go to sleep. Patient also feels like the pressure is too low. She states at the beginning of the night she can feel like she is suffocating and needs more air. I will adjust her pressure for air hunger to 10-14 cmH2O. Patient to call if the pressure is still uncomfortable for further adjustment. Patient states she will lay down and sometimes fall asleep within 10 minutes forget to put on her mask. To prevent falling asleep without CPAP, patient advised to set a bedtime alarm on their phone for use while watching TV on couch or in bed. To prevent falling asleep without CPAP after using the bathroom, patient can either unhook the hose and keep mask on or put mask on pillow. I encouraged patient to try to lose weight. She has lsot some weight and is continuing to try for her health. Patient's apnea severity and rationale for treatment to reduce apnea, improve sleep quality and reduce cardiovascular and cerebrovascular events was reviewed. I also reviewed the benefit of consistent device use of CPAP for depression, anxiety and ADD. * Change auto CPAP pressure to 10-14 cmH2O * Notify me if snoring with mask or feeling that the pressure is too much or too little * Attempt to lose weight * Call this office if any problems using CPAP * Return for follow up in 1-2 months, or sooner if concerns arise Counseling Topics: Spare mask, Weight loss health impact Visit Type: In Office Time Spent with Patient (minutes): 24 Provider Statement: I spent 100% of the Face to Face Visit with the patient with greater than 50% spent counseling the patient and coordination of care.
== END 2021-03-06 10:25 | disposition home or self-care (01) ==
LOC: SC 10:24
PROVIDERS: ATTEND Nurse Practitioner Family
DX: G47.33 Obstructive sleep apnea (adult) (pediatric) (principal); E66.01 Morbid (severe) obesity due to excess calories; Z68.41 Body mass index [BMI] 40.0-44.9, adult
CPT/HCPCS: 99212; 99213

== ENCOUNTER 2021-03-12 12:35 | Outpatient (CLI) | payer MEDICAID ==
[2021-03-12 18:34] LABS: ALBUMIN 4.3 g/dL (3.2-5.5); ALBUMIN/GLOBULIN RATIO 1.2 (1.0-2.2); BILIRUBIN,TOTAL 0.5 mg/dL (0.2-1.0); CALCIUM 9.3 mg/dL (8.5-10.3); POTASSIUM 4.1 mmol/L (3.5-5.0)
[2021-03-12 18:46] LABS: CREATININE,URINE 249.8 mg/dL; MICROALBUM/CREATININE RATIO,UR 6.4 ug/mg (<30.0); MICROALBUMIN,URINE 1.6 mg/dL (0-300.0); THYROID STIMULATING HORMONE 2.82 uIU/mL (0.34-5.60)
[2021-03-12 20:20] LABS: ESTIMATED AVERAGE GLUCOSE 105 mg/dL (70-100); HEMOGLOBIN A1c% 5.3 % (4.27-6.07)
== END 2021-03-12 23:59 | disposition home or self-care (01) ==
LOC: LAB.WCP 12:35
PROVIDERS: ATTEND Family Medicine
DX: I10 Essential (primary) hypertension (principal); G40.909 Epilepsy, unspecified, not intractable, without status epilepticus
CPT/HCPCS: 36415; 80053; 80175; 82043; 82570; 83036; 84443

== ENCOUNTER 2021-04-17 10:27 | Outpatient (CLI) | payer MEDICAID ==
[2021-04-17 11:06] VITALS: BP 113/70
--- NOTE | 2021-04-17 11:06 | SLEEP CARE CONSULTATION ---
Information from patient questionnaire entered by Servando Ovalles MA. I have reviewed and concur with the information entered by Servando Ovalles MA. This document represents the service I personally performed and the decisions made by , Yashira Moya ARNP. History of Present Illness Service Date and Time: 04/17/2021 1027 Previous diagnosis: Severe, Obstructive Sleep Apnea-Hypopnea Syndrome AHI: 46.3 (in 2014) Reason for follow up: other (6 week dollow up) Equipment type: CPAP Equipment obtained from: Other ([facility]; getting supplies as needed) Mask style: Nasal Mask brand: Respironics (Wisp) Backup mask available: Yes (old mask) Last cushion change: 1 month [facility]: Yes [facility] Type of Sleep Study: Polysomnography HPI additional information: HERNANDEZ JULIEN was diagnosed to have severe, AHI 46.3, obstructive sleep apnea- hypopnea syndrome and returned today for CPAP therapy 6 week follow-up. Sleep Study - Results Type of Sleep Study: Polysomnography Prior sleep studies: Yes [facility] CPAP Compliance Data - Data Reviewed with Patient Average duration of nightly device use: 5 hours 5 minutes Compliance rate %: 60 Current pressure setting (cmH2O): 10-14 Average residual AHI: 7.4 Central apnea: 6.1 Obstructive apnea: 1.1 Subjective Missed days of use due to: reports: other (unexpectedly fell asleep; has difficulty falling asleep) Patient concerns: denies: aerophagia, mask discomfort, air blowing in eyes, mask leak noise, condensation in mask/hose, nasal congestion, dry mouth, nose, throat, epistaxis, other Observed to snore while using device: No Current pressure setting perceived as: comfortable On therapy, patient: reports: sleeping better, awakening more refreshed, being more awake and alert during the day, more rested overall. denies: drowsiness while driving Initial [place] Sleepiness Scale score: 14 (in 2014) Current [place] Sleepiness Scale score: 5 (2020) Allergies and Home Medications Home medication list reviewed: Yes (no changes) Review of Systems Review of systems same as previous: No (heart monitor for one month, had a syncope) Physical Exam Vital signs obtained and entered by: Charlette PHILIPPE Blood Pressure: 113/70 (ledt) Cuff size: wrist Heart Rate: 59 (re take 69) O2 Saturation: 96 (with mask) Height: 5 ft 2 in Weight: 213 lb (without boots) Weight change since last visit: 10 lb loss Body Mass Index: 38.9 BMI Classification: Obese Impression and Plan 1. Obstructive Sleep Apnea-Hypopnea Syndrome, severe, with fair treatment compliance and fair apnea control. On CPAP therapy, the patient has better sleep quality and is more rested overall. She still has issues with falling asleep and I advised her to try progressive relaxation technique to try to help her fall asleep. Patient is very satisfied with current pressure setting and she has significant improvement of her sleep apnea. I will not make any changes today. She is at 60% compliance and we will follow up with her in about 3 months to recheck her compliance. Patient has been trying to lose weight. Patient has lost weight. Obesity increases the risk of apnea, CPAP pressure requirements and overall health risks especially cardiovascular and diabetes. Thus patient is advised to continue to lose weight. The patient's CPAP pressure range should accommodate some weight loss. Symptoms to report for additional pressure adjustment discussed. Patient was encouraged to lose weight for their overall health and to reduce apneas. Patient's apnea severity and rationale for treatment to reduce apnea, improve sleep quality and reduce cardiovascular and cerebrovascular events was reviewed. I also reviewed the benefit of consistent device use of CPAP for depression, anxiety and ADD. * Continue auto CPAP pressure at 10-14 cmH2O * Notify me if snoring with mask or feeling that the pressure is too much or too little * Attempt to lose weight * Call this office if any problems using CPAP * Return for follow up in 3 months, or sooner if concerns arise Counseling Topics: Spare mask, Weight loss health impact Visit Type: In Office Time Spent with Patient (minutes): 24 Provider Statement: I spent 100% of the Face to Face Visit with the patient with greater than 50% spent counseling the patient and coordination of care.
== END 2021-04-17 10:28 | disposition home or self-care (01) ==
LOC: SC 10:27
PROVIDERS: ATTEND Nurse Practitioner Family
DX: G47.33 Obstructive sleep apnea (adult) (pediatric) (principal); E66.9 Obesity, unspecified; Z68.38 Body mass index [BMI] 38.0-38.9, adult
CPT/HCPCS: 99212; 99213

== ENCOUNTER 2021-05-28 10:31 | Outpatient (CLI) | payer MEDICAID | END 2021-05-28 10:32 | disposition critical access hospital (66) | LOC: EMS 10:31 | DX: R55 Syncope and collapse (principal); I95.9 Hypotension, unspecified | CPT/HCPCS: A0425; A0429; A0999 ==

== ENCOUNTER 2021-05-28 10:38 | Emergency (ER) | payer MEDICAID ==
[2021-05-28] MEDS ORDERED: SODIUM CHLORIDE 0.9% 1,000 ML IV STA ×2 (10:54→11:42)
--- NOTE | 2021-05-28 10:55 | ED Physician Documentation ---
PD HPI SYNCOPE - Stated complaint Stated Complaint: NEAR SYNCOPE - History obtained from History obtained from: Patient, Friend - History of Present Illness Witnessed: Witnessed (she was up and getting ready for work and felt lightheaded and reportedly fainted without injury. She states she felt lightheaded then remembers being on floor, then up on bed. Partner to EMS that she fainted, awoke and fainted again few times when tried to get her up.) Timing - onset: How many hours ago (1), Today Duration: Seconds Preceding symptoms: Light headed, Generalized weakness. No: Headache, Chest pain, Abdominal pain, Nausea / vomiting Contributing factors: Decreased PO intake (she states she went to [facility] for [employer] shopping yesterday and did not eat/drink much. She went to sleep when back home as was tired. She did have her BP meds last evening. Awoke this morning and had not eaten/drank as yet, when symptoms started.), Just stood up. No: Recent med change, Exertion Injury occurred: No: Fell, Head injury, Neck injury Similar symptoms before: Has not had sx before Recently seen: Clinic Review of Systems Constitutional: denies: Fever, Chills Nose: denies: Rhinorrhea / runny nose, Congestion Throat: denies: Sore throat Respiratory: denies: Cough GI: denies: Abdominal Pain, Nausea, Vomiting, Diarrhea : denies: Dysuria, Incontinent Skin: denies: Abrasion (s), Laceration (s) Musculoskeletal: denies: Neck pain, Back pain Neurologic: denies: Focal weakness, Numbness, Headache, Head injury PD PAST MEDICAL HISTORY - Past Medical History Cardiovascular: Hypertension Respiratory: None Neuro: Seizure disorder Endocrine/Autoimmune: None GI: None 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 : None HEENT: None Psych: Depression, Anxiety, Other Musculoskeletal: None Derm: None - Past Surgical History Past Surgical History: Yes General: Cholecystectomy, Bowel surgery /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 - Present Medications Home Medications: Ambulatory Orders Medication Instructions Recorded Confirmed Metoprolol Succinate 25 mg PO DAILY 12/24/17 01/15/21 Prazosin [Minipress] 5 mg PO DAILY 12/24/17 01/15/21 LORazepam [Ativan] 1 mg PO DAILY 11/14/20 01/15/21 Metformin HCl [Fortamet] 1,000 mg PO BID 11/14/20 01/15/21 lamoTRIgine [Lamictal Xr] 300 mg PO DAILY 11/14/20 01/15/21 - Allergies Allergies/Adverse Reactions: Allergies Allergy/AdvReac Type Severity Reaction Status Date / Time codeine Allergy Intermediate Rash Verified 05/28/21 11:03 - Social History Does the pt smoke?: Yes Smoking Status: Current every day smoker Does the pt drink ETOH?: No Does the pt have substance abuse?: No - Family History Family history: denies: Sudden - Immunizations Immunizations are current?: Yes - POLST Patient has POLST: No PD ED PE NORMAL - Vitals Vital signs reviewed: Yes (BP is low and HR at 59) - General General: Alert and oriented X 3 - HEENT HEENT: Atraumatic, Pharynx benign. No: Moist mucous membranes - Neck Neck: Supple, no meningeal sign, No adenopathy - Cardiac Cardiac: RRR, No murmur - Respiratory Respiratory: Clear bilaterally - Abdomen Abdomen: Normal bowel sounds, Soft, Non tender, Non distended - Derm Derm: Normal color, Warm and dry - Extremities Extremities: Normal ROM s pain, No edema, No calf tenderness / cord - Neuro Neuro: Alert and oriented X 3, No motor deficit, Normal speech Results - Vitals Vitals: Oxygen O2 Source Room air - EKG (time done) 12:20 Rate: Rate (enter#) (53) Rhythm: Sinus bradycardia Buhl: Normal Intervals: Normal UT QRS: Normal Ischemia: Normal ST segments. No: ST elevation c/w ischemia, ST depression Compare to prior EKG: Old EKG unavailable - Labs Labs: Laboratory Tests 05/28/21 05/28/21 05/28/21 10:55 10:55 10:55 WBC 9.1 RBC 4.62 Hgb 14.3 Hct 42.9 MCV 92.9 MCH 31.0 MCHC 33.3 RDW 13.3 Plt Count 293 MPV 9.8 Neut # (Auto) 5.8 Lymph # (Auto) 2.6 [place] # (Auto) 0.4 Eos # (Auto) 0.3 Baso # (Auto) 0.0 Absolute Nucleated RBC 0.00 Nucleated RBC % 0.0 Sodium 137 Potassium 3.9 Chloride 99 L Carbon Dioxide 25 Anion Gap 13.0 BUN 19 Creatinine 1.3 H Estimated GFR (MDRD) 44 L Glucose 116 H Calcium 9.0 Magnesium 2.0 Total Bilirubin 0.7 AST 18 ALT 12 Alkaline Phosphatase 64 Total Protein 7.9 Albumin 4.3 Globulin 3.6 Albumin/Globulin Ratio 1.2 Lipase 30 TSH 6.32 H Free T4 Free T3 pg/mL Serum HCG, Qual 05/28/21 05/28/21 10:55 10:55 WBC RBC Hgb Hct MCV MCH MCHC RDW Plt Count MPV Neut # (Auto) Lymph # (Auto) [place] # (Auto) Eos # (Auto) Baso # (Auto) Absolute Nucleated RBC Nucleated RBC % Sodium Potassium Chloride Carbon Dioxide Anion Gap BUN Creatinine Estimated GFR (MDRD) Glucose Calcium Magnesium Total Bilirubin AST ALT Alkaline Phosphatase Total Protein Albumin Globulin Albumin/Globulin Ratio Lipase TSH Free T4 0.82 Free T3 pg/mL 3.01 Serum HCG, Qual NEGATIVE PD MEDICAL DECISION MAKING - ED course Complexity details: reviewed results, re-evaluated patient, considered differential (likely underhydration with concurrent effect of BP meds. ), d/w patient Departure - Departure Disposition: 01 Home, Self Care Clinical Impression: Transient hypotension Syncope Qualifiers: Syncope type: unspecified Qualified Code(s): R55 - Syncope and collapse Condition: Stable Record reviewed to determine appropriate education?: Yes Instructions: ED Fainting Unkn Cause Follow-Up: Mavis Castanon DO [Primary Care Provider] - Comments: Your basic blood tests are good with a slightly elevated TSH. I ordered T3 and T4 other thyroid tests that should results later or tomorrow. Your primary care can follow-up on those to see if there is any indication of a actual thyroid disorder. Your blood pressure was low and that would correlate with the fainting episode. I think at this point today related to under hydration in conjunction with your normal blood pressure medicines still working their job. I would hold your metoprolol today. If you are feeling better tonight you can still use your prazosin before bed. If feeling well and hydrating regularly, then resume your normal medicines tomorrow. Follow-up with your primary care regarding further evaluation of this. If you are able to check your blood pressure at home, you can check it at times when you are feeling lightheaded to see if it correlates with low BP. Discharge Date/Time: 05/28/21 13:48
[2021-05-28 11:12] LABS: BASOPHILS % (AUTO) 0.3 %; EOSINOPHILS # (AUTO) 0.3 10^3/uL (0.0-0.7); EOSINOPHILS % (AUTO) 3.3 %; HCT - HEMATOCRIT 42.9 % (37.0-47.0); HGB - HEMOGLOBIN 14.3 g/dL (12.0-16.0); LYMPHOCYTES # (AUTO) 2.6 10^3/uL (1.5-3.5); LYMPHOCYTES % (AUTO) 28.5 %; MEAN CORPUSCULAR HGB CONC 33.3 g/dL (32.0-36.0); MEAN CORPUSCULAR VOLUME 92.9 fL (81.0-99.0); MEAN PLATELET VOLUME 9.8 fL (7.9-10.8); MONOCYTES # (AUTO) 0.4 10^3/uL (0.0-1.0); MONOCYTES % (AUTO) 4.2 %; NEUTROPHILS # (AUTO) 5.8 10^3/uL (1.5-6.6); NEUTROPHILS % (AUTO) 63.5 %; PLT - PLATELET COUNT 293 10^3/uL (130-450); RED BLOOD COUNT 4.62 10^6/uL (4.20-5.40); RED CELL DISTRIBUTION WIDTH 13.3 % (12.0-15.0); WHITE BLOOD COUNT 9.1 x10^3/uL (4.8-10.8)
[2021-05-28 11:29] LABS: ALBUMIN 4.3 g/dL (3.2-5.5); ALBUMIN/GLOBULIN RATIO 1.2 (1.0-2.2); BILIRUBIN,TOTAL 0.7 mg/dL (0.2-1.0); CREATININE 1.3 mg/dL (0.4-1.0); POTASSIUM 3.9 mmol/L (3.5-5.0); TOTAL PROTEIN 7.9 g/dL (6.7-8.2)
[2021-05-28 11:37] LABS: HCG,QUALITATIVE BLOOD NEGATIVE
[2021-05-28 13:36] VITALS: BP 104/74
[2021-05-28 14:15] LABS: FREE T3 3.01 pg/mL (2.5-3.9)
[2021-05-28 14:16] LABS: FREE T4 (FREE THYROXINE) 0.82 ng/dL (0.58-1.64)
== END 2021-05-28 13:48 | disposition home or self-care (01) ==
LOC: EDUNIT# → ED 10:38
DX: R55 Syncope and collapse (principal); I95.89 Other hypotension; F17.200 Nicotine dependence, unspecified, uncomplicated
CPT/HCPCS: 36415; 80053; 83690; 83735; 84439; 84443; 84481; 84703; 85025; 93005; 96360; 96361; 99283

== ENCOUNTER 2021-06-20 11:58 | Outpatient (CLI) | payer MEDICAID ==
--- NOTE | 2021-06-20 12:30 | SLEEP CARE CONSULTATION ---
Information from patient questionnaire entered by Servando Ovalles MA. I have reviewed and concur with the information entered by Servando Ovalles MA. This document represents the service I personally performed and the decisions made by , Yashira Moya ARNP. History of Present Illness Service Date and Time: 06/20/2021 1140 Previous diagnosis: Severe, Obstructive Sleep Apnea-Hypopnea Syndrome AHI: 46.3 (in 2014) Reason for follow up: other (2 MONTH FOLLOW UP) Equipment type: CPAP Equipment obtained from: Other ([facility]; she has not reached compliance and asked her to return it) Mask style: Nasal Mask brand: Respironics (Wisp) Backup mask available: Yes (old mask) Prior [facility]: Yes [facility] Type of Sleep Study: Polys[facility]nography HPI additional information: HERNANDEZ JULIEN was diagnosed to have severe, AHI 46.3, obstructive sleep apnea- hypopnea syndrome and returns via video Telehealth visit today for CPAP therapy two month follow-up. Patient is losing her CPAP because of low compliance issues. She contacted her [employer] company and they advised her to follow up her to restart the process to continue CPAP use. Sleep Study - Results Type of Sleep Study: Polysomnography Prior sleep studies: Yes [facility] and [facility] Compliance Data - Data Reviewed with Patient Average duration of nightly device use: 4 HOURS 44 MINUTES Compliance rate %: 55 Current pressure setting (cmH2O): 10-14 Average residual AHI: 2.0 Central apnea: 0.8 Obstructive apnea: 0.9 Subjective Missed days of use due to: reports: family emergency (stress is very high and not able to sleep), other (just does not sleep much) Patient concerns: denies: aerophagia, mask discomfort, air blowing in eyes, mask leak noise, condensation in mask/hose, nasal congestion, dry mouth, nose, th roat, epistaxis, other Observed to snore while using device: No Current pressure setting perceived as: comfortable On therapy, patient: reports: sleeping better, awakening more refreshed, being more awake and alert during the day, more rested overall. denies: drowsiness while driving Initial [place] Sleepiness Scale score: 14 (in 2014) Current [place] Sleepiness Scale score: 4 Allergies and Home Medications Home medication list reviewed: Yes (no changes) Review of Systems Review of systems same as previous: No (fainted in May, seen/eval in ED; had low BP, given fluids) Physical Exam Vital signs obtained and entered by: [employer] visit to reduce exposure during Covid pandemic Height: 5 ft 2 in Weight: 225 lb (per patient) Weight change since last visit: 12 lb gain Body Mass Index: 41.1 BMI Classification: Morbidly Obese Impression and Plan 1. Obstructive Sleep Apnea-Hypopnea Syndrome, severe, with poor treatment compliance and good apnea control. On CPAP therapy, the patient has better sleep quality and is more rested overall. Patient states she received a call from her [employer] stating she needs to return her CPAP due to noncompliance. Patient given the option to restart process that is why she comes into the office today. I will order a polysomnograph/HST to requalify her for CPAP therapy. Patient is currently out of town due to a family emergency. She states she is under so much stress she is having difficulty being able to sleep which has contributed to his noncompliance. Once we have authorization from her insurance we will have her repeat the sleep study once she has returned home. She will be back in the area in about 2 weeks. Patient's apnea severity and rationale for treatment to reduce apnea, improve sleep quality and reduce cardiovascular and cerebr ovascular events was reviewed. I also reviewed the benefit of consistent device use of CPAP for hypertension, depression, anxiety and ADD. Patient has been gaining weight over the holidays. She has gained about 13 pounds since her last visit. Patient advised to try to lose weight to improve her overall health and to reduce apneas. * Continue auto CPAP pressure at 10-14 cmH2O * PSG/HST to requalify for CPAP * Notify me if snoring with mask or feeling that the pressure is too much or too little * Attempt to lose weight * Call this office if any problems using CPAP * Return for follow up after the sleep study, or sooner if concerns arise Counseling Topics: Spare mask, Weight loss health impact Visit Type: Telehealth Video Video Type: VSee Patient Location: Home Location of Provider: Office Patient agrees and consents to this telehealth visit type: Yes Patient agrees to have their insurance billed: Yes Time Spent with Patient (minutes): 20 Provider Statement: I spent 100% of the Telehealth Video Call with the patient with greater than 50% spent counseling the patient and coordination of care.
== END 2021-06-20 11:59 | disposition home or self-care (01) ==
LOC: SC 11:58
PROVIDERS: ATTEND Nurse Practitioner Family
DX: G47.33 Obstructive sleep apnea (adult) (pediatric) (principal); E66.01 Morbid (severe) obesity due to excess calories; Z68.41 Body mass index [BMI] 40.0-44.9, adult

== ENCOUNTER 2021-07-19 10:49 | Emergency (ER) | payer MEDICAID ==
[2021-07-19] MEDS ORDERED: SODIUM CHLORIDE 0.9% 1,000 ML IV STA ×2 (11:39→13:09)
--- NOTE | 2021-07-19 11:40 | ED Physician Documentation ---
History of Present Illness - Stated complaint Stated Complaint: FAINTING/FALL - Chief complaint Chief Complaint: Neuro - Additonal information Additional information: 45-year-old female presents the emergency department for evaluation of a sy ncopal episode. She reports that she woke up this morning feeling normal and was sitting on the toilet defecating and urinating when all of a sudden she felt lightheaded and dizzy she then fell forward to the ground striking her head and passed out. She regained consciousness shortly after. Since then she has had a persistent feeling of being lightheaded and near syncopal. She denies chest pain or shortness of air. She did have a similar presentation in May 2021. She reports that she wore a Holter monitor and follow-up though she does not yet know the results. Past medical history is most significant for bipolar disorder obstructive sleep apnea and hypertension. She does take Minipress and labetalol. Review of Systems Constitutional: reports: Reviewed and negative Eyes: denies: Loss of vision, Decreased vision Ears: reports: Reviewed and negative Throat: reports: Reviewed and negative Cardiac: denies: Chest pain / pressure, Palpitations, Pedal edema, Calf pain Respiratory: reports: Reviewed and negative GI: reports: Reviewed and negative : reports: Reviewed and negative Skin: reports: Reviewed and negative Musculoskeletal: reports: Reviewed and negative Neurologic: reports: Syncope, Headache. denies: Numbness, Difficulty speaking, Seizure, Confused, Altered mental status, Head injury, LOC PD PAST MEDICAL HISTORY - Past Medical History Cardiovascular: Hypertension Respiratory: None Neuro: Seizure disorder Endocrine/Autoimmune: None GI: None ENGINEERING OFFICER: None : None HEENT: None Psych: Depression, Anxiety, Other Musculoskeletal: None Derm: None - Past Surgical History Past Surgical History: Yes General: Cholecystectomy, Bowel surgery /ENGINEERING OFFICER: section - Present Medications Home Medications: Ambulatory Orders Medication Instructions Recorded Confirmed Metoprolol Succinate 12.5 mg PO BID 12/24/17 01/15/21 Prazosin [Minipress] 5 mg PO DAILY 12/24/17 01/15/21 LORazepam [Ativan] 1 mg PO DAILY 11/14/20 01/15/21 Metformin HCl [Fortamet] 1,000 mg PO BID 11/14/20 01/15/21 lamoTRIgine [Lamictal Xr] 300 mg PO DAILY 11/14/20 01/15/21 - Allergies Allergies/Adverse Reactions: Allergies Allergy/AdvReac Type Severity Reaction Status Date / Time codeine Allergy Intermediate Rash Verified 07/19/21 11:10 - Social History Does the pt smoke?: Yes Smoking Status: Current every day smoker Does the pt drink ETOH?: No Does the pt have substance abuse?: No - Immunizations Immunizations are current?: Yes - POLST Patient has POLST: No PD ED PE NORMAL - General General: Alert and oriented X 3, No acute distress, Well developed/nourished - HEENT HEENT: Atraumatic, Ears normal, Moist mucous membranes - Neck Neck: Supple, no meningeal sign, No adenopathy - Cardiac Cardiac: No murmur, No gallop, No rub. 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 Eye Opening: Spontaneous Motor: Obeys Commands Verbal: Oriented GCS Score: 15 Results - Vitals Vitals: Vital Signs - 24 hr 07/19/21 07/19/21 07/19/21 11:06 11:41 12:40 Temperature 36.5 C Heart Rate 88 58 L Heart Rate [ 60 Sitting] Heart Rate [ 64 Standing] Heart Rate [ 56 L Supine] Respiratory 16 14 Rate Blood Pressure 96/57 L 106/57 L Blood Pressure 94/61 [Sitting] Blood Pressure 79/48 L [Standing] Blood Pressure 96/62 [Supine] O2 Saturation 99 96 07/19/21 07/19/21 13:09 13:46 Temperature Heart Rate 57 L Heart Rate [ 63 Sitting] Heart Rate [ 58 L Standing] Heart Rate [ 57 L Supine] Respiratory 20 Rate Blood Pressure 107/71 Blood Pressure 111/76 [Sitting] Blood Pressure 109/69 [Standing] Blood Pressure 103/67 [Supine] O2 Saturation 99 Oxygen O2 Source Room air - EKG (time done) 1205 Rate: Rate (enter#) (54) Rhythm: Sinus bradycardia [place]: Normal Intervals: Normal [place] QRS: Normal Ischemia: Normal ST segments Compare to prior EKG: Unchanged from prior EKG Computer interpretation: Agree with computer - Labs Labs: Laboratory Tests 07/19/21 07/19/21 07/19/21 11:50 11:50 11:50 WBC 9.9 RBC 4.72 Hgb 14.3 Hct 42.5 MCV 90.0 MCH 30.3 MCHC 33.6 RDW 13.0 Plt Count 277 MPV 9.3 Neut # (Auto) 7.5 H Lymph # (Auto) 1.5 [place] # (Auto) 0.4 Eos # (Auto) 0.4 Baso # (Auto) 0.0 Absolute Nucleated RBC 0.00 Nucleated RBC % 0.0 Sodium 136 Potassium 3.6 Chloride 96 L Carbon Dioxide 26 Anion Gap 14.0 H BUN 15 Creatinine 1.3 H Estimated GFR (MDRD) 44 L Glucose 121 H Calcium 9.2 Total Bilirubin 0.8 AST 20 ALT 18 Alkaline Phosphatase 68 Troponin I High Sens 2.5 Total Protein 9.0 H Albumin 4.5 Globulin 4.5 H Albumin/Globulin Ratio 1.0 Lipase 35 Serum HCG, Qual 07/19/21 11:50 WBC RBC Hgb Hct MCV MCH MCHC RDW Plt Count MPV Neut # (Auto) Lymph # (Auto) [place] # (Auto) Eos # (Auto) Baso # (Auto) Absolute Nucleated RBC Nucleated RBC % Sodium Potassium Chloride Carbon Dioxide Anion Gap BUN Creatinine Estimated GFR (MDRD) Glucose Calcium Total Bilirubin AST ALT Alkaline Phosphatase Troponin I High Sens Total Protein Albumin Globulin Albumin/Globulin Ratio Lipase Serum HCG, Qual NEGATIVE - Rads (name of study) CXR Radiology: Final report received (No acute cardiopulmonary process) PD MEDICAL DECISION MAKING - ED course Complexity details: reviewed results, re-evaluated patient, considered differential, d/w patient ED course: 45-year-old female presents emergency department for evaluation of a syncopal episode that occurred this morning when she got up from sleep and was using the restroom. She states that she suddenly felt lightheaded and fell to the floor. She had a similar episode in May 2021. She reportedly wore a Holter monitor for about 1 month with unclear results. Patient has a history of mild hypertension for which she takes metoprolol currently dosed at 12-1/2 mg twice daily. She also has a history of nightmares which she takes prazosin 5 mg nightly. Here in the emergency department screening labs were completed that did not show any worrisome findings. EKG was nonischemic and unchanged from recent. Chest x-ray without acute focal findings. We initially did do orthostatic vital signs and found that she was hypotensive with standing. She was given 2 L of IV fluid here in the emergency department with resolution of the orthostasis. Her symptoms are improved. Though she is recently had a Holter monitor I suspect that the cause of her recurrent syncope and orthostatic hypotension is medication side effect of being on a low-dose beta-aria compliant with the prazosin. This was discussed with the patient at length. I have encouraged her to hold the beta-aria at home. She is to take her blood pressure twice daily. She is also encouraged to consider abstaining from further prazosin use though she is nervous about recurrent nightmares. She will follow up closely with her primary care provider. I did encourage outpatient echocardiogram for further evaluation of her syncope. Emergent return precautions were discussed for worsening symptoms. Departure - Departure Disposition: 01 Home, Self Care Clinical Impression: Syncope Qualifiers: Syncope type: unspecified Qualified Code(s): R55 - Syncope and collapse Condition: Stable Record reviewed to determine appropriate education?: Yes Instructions: ED Syncope Vasovagal Follow-Up: Mavis Castanon DO [Primary Care Provider] - Comments: You were seen in the emergency department today for a fainting episode this morning while using the restroom. Today your screening labs and EKG and chest x-ray do not show any worrisome findings. Initially when you came into the emergency department we did note that you have orthostatic hypotension which means that your blood pressure decreases when you stand. We did give you a few liters of IV fluid and this improved. However as we discussed at the bedside I am concerned that the cause of your fainting may be a combination of medication side effect. The low-dose beta- aria that you are on in combination with the prazosin that you are using for nightmares may be causing orthostatic hypotension and fainting. I would encourage you to discontinue the use of the metoprolol. Check your blood pressures twice daily. You should also consider stopping or reducing your dose of prazosin as this may also be causing any fainting and low blood pressure. Please discuss this ED visit with your primary care provider. They should consider referral for outpatient echocardiogram. If despite abstaining from these medications your symptoms worsen, you have further fainting episodes, develop chest pain, leg swelling or shortness of air then please return immediately to the ER for second evaluation.
[2021-07-19 11:55] LABS: BASOPHILS % (AUTO) 0.3 %; EOSINOPHILS # (AUTO) 0.4 10^3/uL (0.0-0.7); EOSINOPHILS % (AUTO) 3.9 %; HCT - HEMATOCRIT 42.5 % (37.0-47.0); HGB - HEMOGLOBIN 14.3 g/dL (12.0-16.0); LYMPHOCYTES # (AUTO) 1.5 10^3/uL (1.5-3.5); LYMPHOCYTES % (AUTO) 15.3 %; MEAN CORPUSCULAR HEMOGLOBIN 30.3 pg (27.0-31.0); MEAN CORPUSCULAR HGB CONC 33.6 g/dL (32.0-36.0); MEAN PLATELET VOLUME 9.3 fL (7.9-10.8); MONOCYTES # (AUTO) 0.4 10^3/uL (0.0-1.0); MONOCYTES % (AUTO) 3.9 %; NEUTROPHILS # (AUTO) 7.5 10^3/uL (1.5-6.6); NEUTROPHILS % (AUTO) 76.4 %; PLT - PLATELET COUNT 277 10^3/uL (130-450); RED BLOOD COUNT 4.72 10^6/uL (4.20-5.40); WHITE BLOOD COUNT 9.9 x10^3/uL (4.8-10.8)
--- NOTE | 2021-07-19 11:59 | XRAY Report ---
PROCEDURE: Chest 1 View X-Ray INDICATIONS: Chest Pain TECHNIQUE: One view of the chest was acquired. COMPARISON: 01/15/2021 FINDINGS: Surgical changes and devices: None. Lungs and pleura: No pleural effusions or pneumothorax. Lungs are clear. Mediastinum: Mediastinal contours appear normal. Heart size is normal. Bones and chest wall: No suspicious bony lesions. Overlying soft tissues appear unremarkable. IMPRESSION: No acute cardiopulmonary disease. Reviewed by: Gisel Portillo MD on 07/19/2021 11:57 AM [facility] Approved by: Gisel Portillo MD on 07/19/2021 11:57 AM [facility] Station ID: [id number]
[2021-07-19 12:11] LABS: ALBUMIN 4.5 g/dL (3.2-5.5); BILIRUBIN,TOTAL 0.8 mg/dL (0.2-1.0); CALCIUM 9.2 mg/dL (8.5-10.3); CREATININE 1.3 mg/dL (0.4-1.0); POTASSIUM 3.6 mmol/L (3.5-5.0)
[2021-07-19 12:17] LABS: HCG,QUALITATIVE BLOOD NEGATIVE
[2021-07-19 15:20] VITALS: BP 112/74
== END 2021-07-19 15:20 | disposition home or self-care (01) ==
LOC: ED 10:49
DX: S09.90XA Unspecified injury of head, initial encounter (principal); W18.12XA Fall from or off toilet with subsequent striking against object, initial encounter; R55 Syncope and collapse; F17.200 Nicotine dependence, unspecified, uncomplicated; I10 Essential (primary) hypertension
CPT/HCPCS: 36415; 80053; 83690; 84484; 84703; 85025; 93005; 96360; 96361; 99282

== ENCOUNTER 2021-08-13 12:37 | Outpatient (CLI) | payer MEDICAID | END 2021-08-13 12:38 | disposition home or self-care (01) | LOC: SC 12:37 | PROVIDERS: ATTEND Nurse Practitioner Family | DX: G47.33 Obstructive sleep apnea (adult) (pediatric) (principal) ==

== ENCOUNTER 2021-08-15 14:35 | Outpatient (CLI) | payer MEDICAID | END 2021-08-15 14:36 | disposition home or self-care (01) | LOC: SC 14:35 | PROVIDERS: ATTEND Nurse Practitioner Family | DX: G47.33 Obstructive sleep apnea (adult) (pediatric) (principal); R09.02 Hypoxemia | CPT/HCPCS: 95806 ==

== ENCOUNTER 2021-09-14 11:34 | Outpatient (CLI) | payer MEDICAID ==
[2021-09-14 12:16] VITALS: BP 120/71
--- NOTE | 2021-09-14 12:16 | SLEEP CARE CONSULTATION ---
Information from patient questionnaire entered by Servando Ovalles MA. I have reviewed and concur with the information entered by Servando Ovalles MA. This document represents the service I personally performed and the decisions made by , Yashira Moya ARNP. History of Present Illness Service Date and Time: 09/14/2021 1134 Initial [place] Sleepiness Scale score: 14 (in 2014) Current [place] Sleepiness Scale score: 7 (09/28) Additional HPI information: ALIYA JULIEN returns for follow up and results of the recently performed home sleep study. The patient will continue with the nasal CPAP therapy. Nasal autoCPAP set at 10-14 cmH20 will be resumed. A manual titration study will be ordered if unable to find optimal pressure with office adjustments. Patient was cautioned about risks of drowsy driving until sleepiness symptoms resolve. Patient has been trying to use her CPAP more since her last visit. I pulled her compliance and therapy report. A 30 day report shows her using her device 28/30 days with 22 days being in compliant range and her compliance at 73%. She is averaging 4 hours 56 minutes. Her pressures are set at 10-14 cmH2O with her AHI at 2.2. Her average large leaks in good range at 9.7 L/min. Sleep Study - Results Type of Sleep Study: Polysomnography (F/U HOME STUDY, 08/16/2021 [facility],) Prior sleep studies: Yes Year and Where: 2014 - [facility] Polysomnography/Home Sleep Study results: Physician Impression: The quality of the study is good. The length of the study is adequate (> 240 minutes). Please also see the tabulated and graphic data. 1. Obstructive Sleep Apnea-Hypopnea (ICD-10 G47.33), moderate, with an AHI of 26.8/hr and chencho SaO2 of 87%. During the study, the patient had 96 apneas (96 obstructive, 0 central, 0 mixed) and 94 hypopneas. The longest episode lasted 82.0 seconds. The respiratory events occurred more frequently during non-supine sleep (supine AHI was 26.5 and non-supine, 78.26). 2. Hypoxemia (ICD-10 R09.02), minimal, with the lowest oxygen saturation of 87 % and 0.9 minutes with SaO2 under 90%. Baseline oxygen saturation was normal (Average oxygen saturation was 95%). Allergies and Home Medications Home medication list reviewed: Yes (stopped Metoprolol; now taking lorazepam, lamotrigine and metformin) Allergy and home medication list: Allergies codeine Allergy (Intermediate, Verified 07/19/21 11:10) Rash Review of Systems Review of systems same as previous: No (has been passing out, seen in ED; dehydration and low heart rate) Physical Exam Vital signs obtained and entered by: ANGEL MERINO Blood Pressure: 120/71 (RESP 16, PULSE 94, LEFT, ) Cuff size: wrist Heart Rate: 94 O2 Saturation: 92 (N94) Height: 5 ft 2 in Weight: 203 lb (CLOTHES) Body Mass Index: 37.1 BMI Classification: Obese Impression and Plan 1. Obstructive Sleep Apnea-Hypopnea Syndrome, moderate, with lowest oxygen saturation of 87%. Positive pressure therapy could benefit hypertension, depression, anxiety and attention deficit. Aliya is following up with a recent sleep study to re-qualify her for CPAP therapy. She did qualify with moderate LEV and the patient will continue on nasal autoCPAP therapy with pressure set at 10-14 cmH2O. Compliance guidelines also reviewed. A copy of compliance guidelines will be given for reference at check out. I will send a prescription to her DME about her re-qualification. I also reviewed her compliance report and patient is compliant in last 30 days as reported above. I will follow up with her in 3 months for another compliance check in and to see how she is doing. 2. Obesity, unspecified. Currently patients BMI is 37.1. Obesity increases the risk of apnea, CPAP pressure requirements and overall health risks especially cardiovascular and diabetes. Thus patient is advised to lose weight. Weight loss can be done with reducing portion size, reducing refined foods and balancing content with vegetables, fruit and whole grain foods. In addition, patient encouraged to get regular exercise. * Continue auto CPAP pressure at 10-14 cmH2O * Updating for supplies and treatment * Notify me if snoring with mask or feeling that the pressure is too much or too little * Attempt to lose weight * Call this office if any problems using CPAP * Return for follow up in 3 months, or sooner if concerns arise Counseling Topics: Weight loss health impact Visit Type: In Office Time Spent with Patient (minutes): 22 Provider Statement: I spent 100% of the Face to Face Visit with the patient with greater than 50% spent counseling the patient and coordination of care.
== END 2021-09-14 11:35 | disposition home or self-care (01) ==
LOC: SC 11:34
PROVIDERS: ATTEND Nurse Practitioner Family
DX: G47.33 Obstructive sleep apnea (adult) (pediatric) (principal); E66.9 Obesity, unspecified; Z68.37 Body mass index [BMI] 37.0-37.9, adult
CPT/HCPCS: 99212; 99213

== ENCOUNTER 2023-02-20 13:33 | Outpatient (CLI) | payer MEDICAID ==
--- NOTE | 2023-02-20 13:59 | Sleep Patient Instructions ---
Sleep Center Visit Summary - Patient Visit Information Reason for Visit: Annual visit for PAP therapy - Patient Instructions Additional Instructions: You will continue with CPAP therapy with pressure changed to 12-15 cmH2O. A supply prescription will be updated with your DME. We encourage you to continue to try to lose weight. Please follow up with the sleep care office in 1 year. - Clinic Information Contact: [facility] [address] [place] [address] [email or web address] T: [phone]
--- NOTE | 2023-02-20 14:02 | SLEEP CARE CONSULTATION ---
Information from patient questionnaire entered by Lola Mcknight. I have reviewed and concur with the information entered by Lola Mcknight. This document represents the service I personally performed and the decisions made by , Yashira Moya ARNP. History of Present Illness Service Date and Time: 02/20/2023 1333 Previous diagnosis: Severe, Obstructive Sleep Apnea-Hypopnea Syndrome AHI: 26.8 (in 2021)(46.3 in 2014) Reason for follow up: annual (LAST SEEN 09/2021) Accompanied by: Partner ([place]otn) Equipment type: CPAP (RESMED Airsense 10, s/u 12/2020) Equipment obtained from: Other ([facility]; needs new prescription) Mask style: Nasal Mask brand: Respironics ([place]) Backup mask available: Yes (other mask) Last cushion change: 2 months Prior sleep studies: Yes Year and Where: 2014 - [facility] Type of Sleep Study: Polysomnography (F/U HOME STUDY, 08/16/2021 [facility],) HPI additional information: HERNANDEZ JULIEN was diagnosed to have moderate, AHI 26.8, obstructive sleep apnea- hypopnea syndrome and returned today for CPAP therapy annual follow-up. Sleep Study - Results Type of Sleep Study: Polysomnography (F/U HOME STUDY, 08/16/2021 [facility],) Prior sleep studies: Yes Year and Where: 2014 - [facility] CPAP Compliance Data - Data Reviewed with Patient Average duration of nightly device use: 5 HRS 37 MINS Compliance rate %: 80 (08/22/22-02/17/23; 173/180 days used) Current pressure setting (cmH2O): 10-14 Average residual AHI: 2.4 Central apnea: 0.3 Obstructive apnea: 1.6 Hypopnea: 0.4 Average large leak: 1.8 L/min Subjective Missed days of use due to: reports: other (sleep pattern off, working on it) Patient concerns: reports: mask discomfort, condensation in mask/hose. denies: aerophagia, air blowing in eyes, mask leak noise, nasal congestion, dry mouth, nose, throat, epistaxis Observed to snore while using device: No Current pressure setting perceived as: too low On therapy, patient: reports: sleeping better, awakening more refreshed, being more awake and alert during the day, more rested overall. denies: drowsiness w hile driving Initial [place] Sleepiness Scale score: 14 (in 2015) Current [place] Sleepiness Scale score: 10 (02/20/23) Allergies and Home Medications Known drug allergies: Yes (codeine) Drug allergies reviewed: Yes Home medication list reviewed: Yes (see list) Allergy and home medication list: Allergies codeine Allergy (Intermediate, Verified 02/19/23 12:46) Rash Home Medications Medication Instructions Recorded Confirmed Last Taken Type LORazepam [Ativan] 1 mg PO DAILY 11/14/20 02/20/23 07/19/21 09:00 History Metformin HCl [Fortamet] 1,000 mg PO BID 11/14/20 02/20/23 01/14/21 History lamoTRIgine [Lamictal Xr] 300 mg PO DAILY 11/14/20 02/20/23 07/19/21 09:00 History Sertraline HCl See Rx Instructions .ROUTE .COMPLEX 02/20/23 02/20/23 Unknown History Review of Systems Review of systems same as previous: Yes (no changes) Physical Exam Vital signs obtained and entered by: LOLA Norman MA Blood Pressure: 128/76 (LEFT ARM) Cuff size: regular Heart Rate: 86 O2 Saturation: 97 Height: 5 ft 2 in Weight: 237 lb 12.8 oz Body Mass Index: 43.4 BMI Classification: Morbidly Obese Impression and Plan 1. Obstructive Sleep Apnea-Hypopnea Syndrome, moderate, with good treatment compliance and good apnea control. On CPAP therapy, the patient has better sleep quality and is more rested overall. She feels like the pressure is a little low and will occasionally wake up feeling air hunger. The patients pressure will be changed to autoCPAP 12-15 cmH20 for patient comfort. Patient advised to contact me if pressure change is uncomfortable so that it can be adjusted. Goals for apnea control discussed. Patient has significant improvement of their sleep ap mario and is satisfied with current CPAP therapy. Patient states she needs more supplies because her mask is getting worn out. I will update her supply prescription and fax a copy over to her [employer] company. We will follow-up with her next year. Patient's apnea severity and rationale for treatment to reduce apnea, improve sleep quality and reduce cardiovascular and cerebrovascular events was reviewed. I also reviewed the benefit of consistent device use of CPAP for hypertension, depression/anxiety and attention deficit. 2. Obesity, unspecified. Currently patients BMI is 43.4. Obesity increases the risk of apnea, CPAP pressure requirements and overall health risks especially cardiovascular and diabetes. Thus patient is advised to lose weight. * Change auto CPAP pressure to 12-15 cmH2O * Update supplies * Notify me if snoring with mask or feeling that the pressure is too much or too little * Attempt to lose weight * Call this office if any problems using CPAP * Return for follow up in 1 year, or sooner if concerns arise Counseling Topics: Spare mask, Weight loss health impact Prescriptions: Device supplies Visit Type: In Office Time Spent with Patient (minutes): 20 Provider Statement: I spent 100% of the Face to Face Visit with the patient with greater than 50% spent counseling the patient and coordination of care.
[2023-02-20 14:09] VITALS: BP 128/76; O2SAT 97
== END 2023-02-20 13:34 | disposition home or self-care (01) ==
LOC: SC 13:33
PROVIDERS: ATTEND Nurse Practitioner Family
DX: G47.33 Obstructive sleep apnea (adult) (pediatric) (principal); E66.01 Morbid (severe) obesity due to excess calories; Z68.41 Body mass index [BMI] 40.0-44.9, adult
CPT/HCPCS: 99212; 99213

== ENCOUNTER 2023-06-04 01:41 | Emergency (ER) | payer MEDICAID ==
--- NOTE | 2023-06-04 01:59 | ED Physician Documentation ---
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 patient felt normal yesterday. she states she normally uses her cpap at night but fell asleep without it and thinks she stopped breathing in her sleep. patient has remote history of acid reflux. denies food allergies and states she had pizza last night for dinner. 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 TESTER: section - Present Medications Home Medications: Ambulatory Orders Medication Instructions Recorded Confirmed LORazepam [Ativan] 1 mg PO DAILY 11/14/20 06/04/23 Sertraline HCl 100 mg ORAL DAILY 02/20/23 06/04/23 lamoTRIgine [LaMICtal] 300 mg PO DAILY 06/04/23 06/04/23 - Allergies Allergies/Adverse Reactions: Allergies Allergy/AdvReac Type Severity Reaction Status Date / Time codeine Allergy Intermediate Rash Verified 06/04/23 02:10 - Social History Does the pt smoke?: Yes Smoking Status: Current every day smoker Does the pt drink ETOH?: No Does the pt have substance abuse?: No - Immunizations Immunizations are current?: Yes - POLST Patient has POLST: No PD ED PE NORMAL - Vitals Vital signs reviewed: Yes - General General: Alert and oriented X 3, No acute distress, Well developed/nourished - HEENT HEENT: Atraumatic, PERRL, EOMI, Moist mucous membranes, Pharynx benign - Neck Neck: Supple, no meningeal sign - Cardiac Cardiac: RRR - Respiratory Respiratory: No respiratory distress, Clear bilaterally - Derm Derm: Normal color, Warm and dry Results - Vitals Vitals: Vital Signs - 24 hr 06/04/23 01:45 Temperature 36.6 C Heart Rate 72 Respiratory 16 Rate Blood Pressure 149/108 H O2 Saturation 97 Oxygen O2 Source Room air - EKG (time done) 0149 EKG releavant findings:: EKG personally interpreted by author of this note. Relevant findings are: Rate: Rate (enter#) (73) Rhythm: NSR [place]: Normal Intervals: Normal [place] QRS: Normal Ischemia: Normal ST segments PD Medical Decision Making - ED course ED course: 47yF presents with sudden throat pain, shortness of breath upon waking just prior to arrival, now improving. Her vital signs and physical exam are normal except for some mild high blood pressure. she requested medicine for her throat pain so GI cocktail was ordered to hopefully numb the throat and provide relief. plan to f/u with pcp. return precautions given. Departure - Departure Disposition: 01 Home, Self Care Clinical Impression: Throat pain in adult, Shortness of breath Condition: Stable Instructions: Esophagitis Comments: You were seen in the emergency department for medical evaluation. Your vital signs uncovered some mild high blood pressure. You should have this rechecked with your doctor. Please follow-up with your primary care provider and return to the emergency department if you have any new or worsening symptoms or other concerns.
[2023-06-04] MEDS ORDERED: LIDOCAINE VISCOUS 2% 15 ML ORAL SYRINGE MM STA (02:11)
[2023-06-04] MEDS ORDERED: diphenhydrAMINE ELIXIR 25 MG/10 ML UDC PO STA (02:11)
[2023-06-04] MEDS ORDERED: MAG HYDROX/AL HYDROX/SIMETH 30 ML UDC PO STA (02:12)
[2023-06-04 02:56] VITALS: BP 144/83; O2SAT 94
== END 2023-06-04 02:49 | disposition home or self-care (01) ==
LOC: ED 01:41
DX: R07.0 Pain in throat (principal); R06.02 Shortness of breath; I10 Essential (primary) hypertension; F17.200 Nicotine dependence, unspecified, uncomplicated
CPT/HCPCS: 93005; 99283; 99284; A9270

== ENCOUNTER 2023-06-07 07:42 | Outpatient (CLI) | payer MEDICAID ==
[2023-06-07 08:09] LABS: BASOPHILS % (AUTO) 0.3 %; EOSINOPHILS # (AUTO) 0.5 10^3/uL (0.0-0.7); EOSINOPHILS % (AUTO) 4.3 %; HCT - HEMATOCRIT 42.4 % (37.0-47.0); HGB - HEMOGLOBIN 14.1 g/dL (12.0-16.0); LYMPHOCYTES # (AUTO) 2.6 10^3/uL (1.5-3.5); LYMPHOCYTES % (AUTO) 24.4 %; MEAN CORPUSCULAR HEMOGLOBIN 29.9 pg (27.0-31.0); MEAN CORPUSCULAR HGB CONC 33.3 g/dL (32.0-36.0); MEAN PLATELET VOLUME 8.9 fL (7.9-10.8); MONOCYTES # (AUTO) 0.5 10^3/uL (0.0-1.0); MONOCYTES % (AUTO) 4.2 %; NEUTROPHILS # (AUTO) 7.1 10^3/uL (1.5-6.6); NEUTROPHILS % (AUTO) 66.5 %; PLT - PLATELET COUNT 305 10^3/uL (130-450); RED BLOOD COUNT 4.71 10^6/uL (4.20-5.40); RED CELL DISTRIBUTION WIDTH 14.4 % (12.0-15.0); WHITE BLOOD COUNT 10.7 x10^3/uL (4.8-10.8)
[2023-06-07 08:26] LABS: ALBUMIN 4.6 g/dL (3.2-5.5); ALBUMIN/GLOBULIN RATIO 1.2 (1.0-2.2); ALKALINE PHOSPHATASE 87 IU/L (42-121); ALT ALANINE AMINOTRANSFERASE 17 IU/L (10-60); AST ASPARTATE AMINOTRANSFERASE 19 IU/L (10-42); BILIRUBIN,TOTAL 0.3 mg/dL (0.2-1.0); BUN - BLOOD UREA NITROGEN 15 mg/dL (6-20); CALCIUM 9.4 mg/dL (8.5-10.3); CARBON DIOXIDE - CO2 26 mmol/L (21-32); CHLORIDE 102 mmol/L (101-111); CHOL/HDL RATIO 3.6 (<4.4); CHOLESTEROL 143 mg/dL; CREATININE 0.9 mg/dL (0.6-1.3); GFR - MDRD 67 (>89); GLUCOSE 115 mg/dL (74-104); HDL CHOLESTEROL 40 mg/dL; LDL CHOLESTEROL,CALCULATED 71 mg/dL; LDL/HDL RATIO 1.8 (<4.4); POTASSIUM 3.7 mmol/L (3.5-4.5); SODIUM 137 mmol/L (135-145); TOTAL PROTEIN 8.4 g/dL (6.4-8.9); TRIGLYCERIDES 159 mg/dL (48-352); VLDL CHOLESTEROL 32 mg/dL
[2023-06-07 08:33] LABS: THYROID STIMULATING HORMONE 6.74 uIU/mL (0.34-5.60)
[2023-06-07 13:52] LABS: ESTIMATED AVERAGE GLUCOSE 114 mg/dL (70-100); HEMOGLOBIN A1c% 5.6 % (4.27-6.07)
[2023-06-09 17:08] LABS: ANTINUCLEAR ANTIBODIES IFA Negative (.)
== END 2023-06-07 07:43 | disposition home or self-care (01) ==
LOC: LAB 07:42
PROVIDERS: ATTEND Physician Assistant
DX: E11.9 Type 2 diabetes mellitus without complications (principal); R21 Rash and other nonspecific skin eruption; M53.3 Sacrococcygeal disorders, not elsewhere classified
CPT/HCPCS: 36415; 80053; 80061; 83036; 83721; 84439; 84443; 85025; 85651; 86038; 86140

== ENCOUNTER 2023-09-01 15:17 | Outpatient (CLI) | payer MEDICAID ==
[2023-09-01 16:11] LABS: THYROID STIMULATING HORMONE 3.57 uIU/mL (0.34-5.60)
== END 2023-09-01 15:18 | disposition home or self-care (01) ==
LOC: LAB 15:17
PROVIDERS: ATTEND Physician Assistant
DX: R94.6 Abnormal results of thyroid function studies (principal)
CPT/HCPCS: 36415; 84439; 84443; 84481

== ENCOUNTER 2023-11-07 18:29 | Outpatient (CLI) | payer MEDICAID ==
--- NOTE | 2023-11-09 10:05 | XRAY Report ---
PROCEDURE: Finger(s) RT INDICATIONS: SPRAIN OF METACARPOPHALANGEAL JOINT TECHNIQUE: PA hand, 2 views of the middle finger acquired. COMPARISON: None. FINDINGS: Bones: No acute fractures or dislocations. No suspicious bony lesions. Soft tissues: No suspicious soft tissue calcifications. IMPRESSION: No acute osseous abnormality. If there is clinical concern or persistent symptoms, additional imaging such as repeat radiographs or advanced imaging (e.g. CT, MRI) may be helpful for further evaluation. Reviewed by: Farhad Shanks MD on 11/09/2023 10:04 AM PDT Approved by: Farhad Shanks MD on 11/09/2023 10:04 AM PDT Station ID: [id number]
== END 2023-11-07 18:30 | disposition home or self-care (01) ==
LOC: DI 18:29
PROVIDERS: ATTEND Emergency Medicine
DX: S63.658A Sprain of metacarpophalangeal joint of other finger, initial encounter (principal)

== ENCOUNTER 2024-02-26 14:03 | Outpatient (CLI) | payer MEDICAID ==
--- NOTE | 2024-02-26 14:26 | Sleep Patient Instructions ---
Sleep Center Visit Summary - Patient Visit Information Reason for Visit: Annual follow-up - Patient Instructions Additional Instructions: You will continue with CPAP therapy with pressure changed to 14-16 cmH2O. Please let us know if the pressure change is uncomfortable and we can make further adjustments of the pressure. A supply prescription will be updated with your DME supplier. We encourage you to continue to try to lose weight. Please follow up with the sleep care office in 1 year. - Clinic Information Contact: [facility] [address] [place] [id number] [email or web address] T: [phone]
--- NOTE | 2024-02-26 14:35 | SLEEP CARE CONSULTATION ---
Information from patient questionnaire entered by Perez Mcknight. I have reviewed and concur with the information entered by Perez Mcknight. This document represents the service I personally performed and the decisions made by me, Yashira Moya ARNP. History of Present Illness Service Date and Time: 02/26/2024 1403 Previous diagnosis: Moderate, Obstructive Sleep Apnea-Hypopnea Syndrome AHI: 26.8 (in 2021)(46.3 in 2014) Reason for follow up: annual (LAST SEEN 02/2023) Equipment type: CPAP (RESMED Airsense 10, s/u 12/2020) Equipment obtained from: Other ([facility]; getting supplies) Mask style: Nasal Mask brand: Respironics ([place]isp) Backup mask available: Yes Last cushion change: couple months Prior sleep studies: Yes Year and Where: 2014 - [facility] Type of Sleep Study: Polysomnography (F/U HOME STUDY, 08/16/2021 [facility],) HPI additional information: HERNANDEZ JULIEN was diagnosed to have moderate, AHI 26.8, obstructive sleep apnea- hypopnea syndrome and returned today for CPAP therapy annual follow-up. Sleep Study - Results Type of Sleep Study: Polysomnography (F/U HOME STUDY, 08/16/2021 [facility],) Prior sleep studies: Yes Year and Where: 2014 - [facility] Sleep CPAP Compliance Data - Data Reviewed with Patient Average duration of nightly device use: 5 HRS 16 MINS Compliance rate %: 72 (08/23/23-02/23/24; 173/180 days used) Current pressure setting (cmH2O): 12-15 (avg 13.9, max 14.4) Average residual AHI: 2.1 Central apnea: 0.4 Obstructive apnea: 1.1 Hypopnea: 0.4 Average large leak: 2 L/min Subjective Missed days of use due to: reports: other (will take off when sleeping, says she sometimes is "breathing hard" when she takes off) Patient concerns: reports: mask discomfort, mask leak noise, nasal congestion (sometimes). denies: aerophagia, air blowing in eyes, condensation in mask/hose, dry mouth, nose, throat, epistaxis Observed to snore while using device: No Current pressure setting perceived as: comfortable On therapy, patient: reports: sleeping better, awakening more refreshed, being more awake and alert during the day, more rested overall. denies: drowsiness while driving Initial [place] Sleepiness Scale score: 14 (in 2015) Current [place] Sleepiness Scale score: 12 (02/26/24) Allergies and Home Medications Known drug allergies: Yes (as listed) Drug allergies reviewed: Yes Home medication list reviewed: Yes (as listed) Allergy and home medication list: Allergies codeine Allergy (Intermediate, Verified 02/26/24 14:07) Rash Home Medications Medication Instructions Recorded Confirmed Last Taken Type LORazepam [Ativan] 1 mg PO DAILY 11/14/20 02/26/24 07/19/21 09:00 History Sertraline HCl 100 mg ORAL DAILY 02/20/23 02/26/24 Unknown History lamoTRIgine [LaMICtal] 300 mg PO DAILY 06/04/23 02/26/24 Unknown History metFORMIN [Glucophage] See Rx Instructions .ROUTE .COMPLEX 02/26/24 02/26/24 Unknown History Review of Systems Review of systems same as previous: Yes (NO CHANGE) Physical Exam Vital signs obtained and entered by: PEREZ Norman MA Blood Pressure: 163/97 (LEFT ARM; retake 154/102) Cuff size: long Heart Rate: 78 O2 Saturation: 96 Height: 5 ft 2.5 in Weight: 232 lb 9.6 oz Weight change since last visit: 5 lb loss Body Mass Index: 41.8 BMI Classification: Morbidly Obese Impression and Plan 1. Obstructive Sleep Apnea-Hypopnea Syndrome, moderate, with good treatment compliance and good apnea control. On CPAP therapy, the patient has better sleep quality and is more rested overall. Her compliance is good but she does seem to take her mask off regularly at night when she is sleeping. She states her has told her that at those times sometimes he will appears that she is breathing heavily. Her average residual AHI is well-controlled at 2.1. It may be that she needs a little more pressure during the night and I offered to adjust her pressure a little higher to see if that would reduce her taking her mask off at night. She agreed and will let me know if the pressure change is uncomfortable. Her pressure will be adjusted to 14-16 cm H2O. Patient's apnea severity and rationale for treatment to reduce apnea, improve sleep quality and reduce cardiovascular and cerebrovascular events was reviewed. I also reviewed the benefit of consistent device use of CPAP for hypertension, depression/anxiety, attention deficit. 2. Obesity, unspecified. Currently patients BMI is 41.8. She has lost weight. Obesity increases the risk of apnea, CPAP pressure requirements and overall health risks especially cardiovascular and diabetes. Thus patient is advised to continue to try to lose weight. 3. Elevated blood pressure in patient with hypertension. Her initial blood pressure was 163/97. She said it is always elevated when coming in to the doctor's office and her PCP will retake her blood pressure at end of visit. Her follow up blood pressure was still elevated at 154/102. She was encouraged to followup with her PCP. * Continue auto CPAP pressure at 12-15 cmH2O * Update supply prescription. * Notify me if snoring with mask or feeling that the pressure is too much or too little * Attempt to lose weight * Call this office if any problems using CPAP * Return for follow up in 12 months, or sooner if concerns arise Adjust device pressure to (cmH2O): 14-16 Counseling Topics: Spare mask, Weight loss health impact Prescriptions: Device supplies Follow up with Sleep Care in: 1 year Visit Type: In Office Time Spent with Patient (minutes): 21 Provider Statement: I spent 100% of the Face to Face Visit with the patient with greater than 50% spent counseling the patient and coordination of care.
[2024-02-26 14:36] VITALS: BP 163/97; O2SAT 96
== END 2024-02-26 14:04 | disposition home or self-care (01) ==
LOC: SC 14:03
PROVIDERS: ATTEND Nurse Practitioner Family
DX: G47.33 Obstructive sleep apnea (adult) (pediatric) (principal); E66.01 Morbid (severe) obesity due to excess calories; Z68.41 Body mass index [BMI] 40.0-44.9, adult; I10 Essential (primary) hypertension
CPT/HCPCS: 99212; 99213